=== PATIENT | female | born 1955 | race Caucasian/White ===

== ENCOUNTER 2021-11-19 11:45 | Emergency (ER) | payer OTHER, SELFPAY ==
--- NOTE | ~2021-11-19 | CT_ITS ---
EXAMINATION: CT HEAD WITHOUT CONTRAST CLINICAL INFORMATION: Dizziness COMPARISON: None TECHNIQUE: Contiguous axial imaging was performed from the skull base to vertex without intravenous administration of contrast. This CT examination was performed using dose optimization techniques as appropriate, variously including the following: *Automated exposure control *Adjustment of mA and/or kV according to patient size (this includes techniques or standardized protocols for targeted exams where dose is matched to indication/reason for exam; i.e. extremities or head) *Use of iterative reconstruction technique DLP: 675 mGy-cm FINDINGS: There is no evidence of acute intracranial hemorrhage or territorial infarction. No abnormal mass effect or midline shift is seen. [place] to white matter differentiation is well preserved. No extra-axial fluid collections are identified. The ventricles are normal in size. There is no abnormal attenuation within the brain parenchyma. The osseous structures and soft tissues are normal. The mastoid air cells and visualized portions of the paranasal sinuses are well aerated. CT/CT head/brain wo con IMPRESSION: Unremarkable exam.
[2021-11-19 12:00] VITALS: BP 196/73; PULSE 92; RESP 18; TEMP 35.3; O2SAT 99; BMI 31.1
--- NOTE | 2021-11-19 12:51 | ED_ITS ---
HPI - General Adult General Chief complaint: Dizziness Stated complaint: dizzy heartburn Time Seen by Provider: 11/19/21 12:34 Source: patient Mode of arrival: ambulatory Limitations: no limitations History of Present Illness HPI narrative: 56-year-old female with past medical history of diabetes, hypertension, and GERD, presents for two episodes of dizziness and heartburn. At 5:00 a.m. today, patient felt dizzy. By dizzy she means she felt lightheaded. When she took her blood sugar at home at that time, it was 131. After she took a sugar pill and ate breakfast she felt better, the lightheadedness resolved. Again, at 7 am, she was lightheaded. The lightheadedness lasted for 3 hours, until 10 am.. She felt anxious. At 8:30 a.m. she had heartburn for 45 minutes. States she had epigastric pain that radiated up into her chest. She does see a activities attendant once a year at [facility] in [place]. She does have yearly stress tests, last 1 over year ago. No stents, no history of myocardial infarction. Currently does not feel dizzy at this time. No chest pain, no shortness of breath, no gait disturbance, no headache, no blurry vision, no neck pain, no vomiting. Prior to this she has not been sick. Related Data Allergies Allergy/AdvReac Type Severity Reaction Status Date / Time ibuprofen [IBUPROFEN] Allergy Severe ANAPHYLAXIS, Unverified 07/23/20 17:36 itch Review of Systems Constitutional: Constitutional: Denies body ache(s), Denies chills, Denies fatigue, Denies fever(s), Denies headache(s), Denies malaise and Denies weakness Eyes: Eyes: Denies blurry vision and Denies diplopia ENT: Reports Normal hearing present, Denies vertigo, Reports dizziness, Denies otalgia, Denies headache(s), Denies mouth pain, Denies neck pain, Denies disequilibrium, Denies post nasal drip, Denies sinus pain, Denies sinus pressure, Denies sore throat and Denies throat swelling Cardiovascular: Cardiovascular: Denies chest pain, Denies syncope, Denies leg edema, Denies lightheadedness, Denies Loss of Consciousness, Denies palpitations and Denies dyspnea Respiratory: Respiratory: Denies chest congestion, Denies cough and Denies dyspnea Gastrointestinal: Gastrointestinal: Denies abdominal pain, Denies hematochezia, Denies constipation, Denies diarrhea and Denies vomiting Genitourinary: Genitourinary: Reports no additional female genitourinary complaints Musculoskeletal: Musculoskeletal: Reports no additional musculoskeletal complaints and Denies neck pain Integumentary/Breasts: Skin/Breast: Denies rash Neurologic: Reports Normal hearing present, Denies Abnormal speech present, Denies confusion, Denies vertigo, Reports dizziness, Denies syncope, Denies headache(s), Denies Sensory deficit (Neuro), Denies disequilibrium and Denies weakness Psychiatric: Psychiatric: Denies anxiety, Denies confusion and Denies depression Endocrine: Endocrine: Denies fatigue and Denies palpitations Allergic/Immunologic: Allergic/Immunologic: Denies throat swelling PMFSH Past Medical History Medical History Diabetes High cholesterol HTN (hypertension) Surgical History H/O section Social History Social History Advance Directives: Yes Advance Directives Information Provided: Yes Advance Directives on File: No Physical Exam Vital Signs: Vital Signs: Last Vital Signs Temp 98.3 F 11/19/21 16:11 Pulse 74 11/19/21 16:11 Resp 16 11/19/21 16:11 BP 142/72 H 11/19/21 16:11 Pulse Ox 98 11/19/21 16:11 BMI result Body Mass Index 31.1 Const: General: comfortable, no acute distress and alert; No confusion Nutritional Appearance: well nourished Orientation/consciousness: patient oriented x3 and No confusion Limitations: no limitations HENMT: Head: Yes normal to inspection, Yes normocephalic and Yes atraumatic Ears: hearing grossly normal bilaterally, external ears normal, TM's normal bilaterally and EAC's normal General nose exam: Normal external nose present Face and sinus: Yes normal facial exam and Yes sinuses nontender Mouth: Normal oral and palatal mucosa present Throat: Yes posterior oropharynx normal Eyes: Conjunctivae: conjunctivae normal Pupils: Equal, round and reactive pupils present EOM: EOMs intact bilaterally and No Nystagmus present Neck: Neck: Yes full ROM, Yes no lymphadenopathy and Yes supple Resp: Effort & Inspection: normal respiratory effort and able to speak in complete sentences Auscultation: clear to auscultation bilaterally, no crackles, no rales, no rhonchi and no wheezes Cardio: Rate: regular rate Rhythm: regular rhythm Heart sounds: S1 normal heart sound present and S2 normal heart sound present GI: Inspection: Yes normal to inspection Palpation (GI): Soft to palpation, nontender, no guarding and not rigid Percussion: Yes normal to percussion Auscultation: normal bowel sounds Skin: General skin exam: no rashes or lesions noted Neuro: General: patient oriented x3, gait normal, CN's II-XI intact bilaterally and No confusion Cranial nerves: Yes CN's II-XII intact bilaterally, Yes Facial sensation intact/muscles of mastication intact, Yes Equal, round and reactive pupils present, Yes Normal accommodation reflex present, Yes Bilaterally intact EOM present, Yes Nystagmus not present, Yes Normal facial strength present, Yes Midline tongue present, Yes Normal hearing present, Yes Ability to bilaterally rotate head present, Yes Ability to bilaterally elevate shoulders present, Yes Individual cranial nerve findings present and No Nystagmus present Cognition (Neuro): normal cognition Speech: No Abnormal speech present Gait exam (Neuro): Normal gait present Motor exam (neuro): 5/5 motor strength present throughout and Pronator motor function not present Sensory Exam: No Sensory deficit (Neuro) Deep tendon reflexes (DTR's): Right brachioradialis reflex intensity grade: 1+, Left brachioradialis reflex intensity grade: 1+, Right patellar reflex intensity grade: 1+ and Left patellar reflex intensity grade: 1+ Coordination: [id number] test normal and [id number] test normal Romberg Test: Negative Pupils: Normal pupillary reactivity/response: bilateral Extrem: General: Yes normal to inspection and Yes full ROM Psych: Appearance: grossly normal Affect: normal affect Attitude: cooper apprentice perative Thought process: Normal thought process present Course Course Course Narrative: 66-year-old female with past medical history of diabetes, hypertension, and GERD presents with an episode of dizziness that is resolved prior to arrival, and an episode of heartburn at the same time. On exam, patient is neurologically intact, benign neurological exam. EKG shows no ischemic changes. Will get labs, troponin, urine, head CT. Orthostatics vital signs. Reevaluation(s) Reevaluation #1: Normal head CT, normal EKG. Chemistry is normal, CBC only shows mild anemia. Initial troponin negative. Will repeat troponin 3 hour lalo which will be 5:30 p.m. Reevaluation #2: Orthostatics are negative, urine is negative. Patient is feeling well since she has been here, no more dizziness or epigastric pain since she has been here in the emergency room Pt has been asymptomatic the entire time she has been in the ED Second troponin is also negative. Advised patient to follow-up with her primary care physician as well as her activities attendant. Advised her to return if she had any new dizziness, chest pain, shortness of breath, or any other new or concerning symptoms. Patient verbalized agreement understanding of plan, all of her questions were answered Medical Decision Making Lab Data Result diagrams: 11/19/21 14:31 11/19/21 14:31 Labs: Lab Results 11/19/21 11/19/21 11/19/21 Range/Units 14:31 14:31 14:31 WBC 10.1 (4.8-10.8) X10*3/uL RBC 4.11 L (4.20-5.50) X10*6/uL Hgb 11.8 L (12.0-16.0) g/dl Hct 36.6 L (37.0-47.0) % MCV 89.1 (80.0-98.0) fL MCH 28.7 (27.0-33.0) pg MCHC 32.2 (31.0-35.0) g/dl RDW 14.0 (11.0-16.0) % Plt Count 396 (160-400) X10*3/uL MPV 8.9 L (9.4-12.3) fL Immature Gran % (Auto) 0.8 H (0.0-0.4) % Neut % (Auto) 72.5 (45-73) % Lymph % (Auto) 14.2 L (20-40) % [place] % (Auto) 9.9 (2-11) % Eos % (Auto) 2.4 (0-4) % Baso % (Auto) 0.2 (0-2) % Lymph # (Auto) 1.4 (1.2-4.9) X10*3/uL [place] # (Auto) 1.0 (0.1-1.2) X10*3/uL Eos # (Auto) 0.2 (0.0-0.4) X10*3/uL Baso # (Auto) 0.0 (0.0-0.2) X10*3/uL Abs Immat Gran (auto) 0.08 H (0.00-0.03) X10*3/uL Absolute Neuts (auto) 7.3 (2.0-8.3) x10*3/uL Absolute Nucleated RBC 0.000 (0.0-0.012) X10*3/uL Nucleated RBC % (auto) 0.0 (0.0-0.2) /100WBC Sodium 141 (135-145) mmol/L Potassium 4.2 (3.3-5.1) mmol/L Chloride 105 (96-108) mmol/L Carbon Dioxide 28 (22-29) mmol/L Anion Gap 12 (12-20) BUN 14 (9-16) mg/dL Creatinine 0.68 (0.5-1.4) mg/dL Estim Creat Clear Calc 85.1 Estimated GFR > 60 Random Glucose 95 (60-115) mg/dL Calcium 9.9 (8.4-10.2) mg/dL Magnesium 2.0 (1.6-2.6) mg/dL Total Bilirubin 0.3 (0.0-1.0) mg/dL AST 14 (5-31) U/L ALT 13 (0-31) U/L Alkaline Phosphatase 45 (39-117) U/L Troponin I High Sens < 3.5 (<3.5-17.0) ng/L Total Protein 7.4 (6.5-8.0) g/dL Albumin 3.9 (3.5-5.0) g/dL Urine Color Urine Appearance Urine pH (5.0-8.0) Ur Specific [place] (1.005-1.025) Urine Protein (NEG-TRACE) MG/DL Urine Glucose (UA) (NEG) MG/DL Urine Ketones (NEG) MG/DL Urine Blood (NEG) Urine Nitrite (NEG) Ur Leukocyte Esterase (NEG) COVID-19 (SALLY) (Negative) COVID-19 Clin Com 01/14/22 01/14/22 01/14/22 Range/Units 14:31 16:12 17:43 WBC (4.8-10.8) X10*3/uL RBC (4.20-5.50) X10*6/uL Hgb (12.0-16.0) g/dl Hct (37.0-47.0) % MCV (80.0-98.0) fL MCH (27.0-33.0) pg MCHC (31.0-35.0) g/dl RDW (11.0-16.0) % Plt Count (160-400) X10*3/uL MPV (9.4-12.3) fL Immature Gran % (Auto) (0.0-0.4) % Neut % (Auto) (45-73) % Lymph % (Auto) (20-40) % [place] % (Auto) (2-11) % Eos % (Auto) (0-4) % Baso % (Auto) (0-2) % Lymph # (Auto) (1.2-4.9) X10*3/uL [place] # (Auto) (0.1-1.2) X10*3/uL Eos # (Auto) (0.0-0.4) X10*3/uL Baso # (Auto) (0.0-0.2) X10*3/uL Abs Immat Gran (auto) (0.00-0.03) X10*3/uL Absolute Neuts (auto) (2.0-8.3) x10*3/uL Absolute Nucleated RBC (0.0-0.012) X10*3/uL Nucleated RBC % (auto) (0.0-0.2) /100WBC Sodium (135-145) mmol/L Potassium (3.3-5.1) mmol/L Chloride (96-108) mmol/L Carbon Dioxide (22-29) mmol/L Anion Gap (12-20) BUN (9-16) mg/dL Creatinine (0.5-1.4) mg/dL Estim Creat Clear Calc Estimated GFR Random Glucose (60-115) mg/dL Calcium (8.4-10.2) mg/dL Magnesium (1.6-2.6) mg/dL Total Bilirubin (0.0-1.0) mg/dL AST (5-31) U/L ALT (0-31) U/L Alkaline Phosphatase (39-117) U/L Troponin I High Sens < 3.5 (<3.5-17.0) ng/L Total Protein (6.5-8.0) g/dL Albumin (3.5-5.0) g/dL Urine Color STRAW Urine Appearance CLEAR Urine pH 7.0 (5.0-8.0) Ur Specific [place] 1.010 (1.005-1.025) Urine Protein NEG (NEG-TRACE) MG/DL Urine Glucose (UA) NEG (NEG) MG/DL Urine Ketones NEG (NEG) MG/DL Urine Blood NEG (NEG) Urine Nitrite NEG (NEG) Ur Leukocyte Esterase NEG (NEG) COVID-19 (SALLY) Negative (Negative) COVID-19 Clin Com See Note ECG Data Interpretation: Sinus at 75, MS 144, QRS 96, QTC 439. Normal axis, no ST depressions or elevations, no T-wave changes Discharge Plan Discharge Clinical Impression: Dizziness, Heartburn Patient Disposition: Home, Self-Care Instructions: Lightheadedness (ED) Additional Instructions: Please call both her primary care provider in your activities attendant for follow-up appointments. Please return to emergency room if you have new symptoms of dizziness or lightheadedness, chest pain, shortness of breath, or any other new or concerning symptoms.
--- NOTE | 2021-11-19 12:52 | ECG_ITS ---
Test Reason : dissiness Blood Pressure : / mmHG Vent. Rate : 075 BPM Atrial Rate : 075 BPM P-R Int : 144 ms QRS Dur : 098 ms QT Int : 394 ms P-R-T Axes : 026 -18 025 degrees QTc Int : 439 ms Normal sinus rhythm Normal ECG No significant changes when compared with the previous EKG of 10 dec 2017 Referred By: Radha Marks Electronically Signed By:ANTHONY SWARTZ
[2021-11-19 14:42] LABS: MANUAL DIFF FLAG NO
[2021-11-19 14:45] LABS: Basophils Percent Auto 0.2 % (0-2); Eosinophils Absolute Auto 0.2 X10*3/uL (0.0-0.4); Eosinophils Percent Auto 2.4 % (0-4); Hematocrit 36.6 % (37.0-47.0); Hemoglobin 11.8 g/dl (12.0-16.0); Imm Gran Abs Auto 0.08 X10*3/uL (0.00-0.03); Imm Gran Pct Auto 0.8 % (0.0-0.4); Lymphocytes Absolute Auto 1.4 X10*3/uL (1.2-4.9); Lymphocytes Percent Auto 14.2 % (20-40); Mean Corpuscular HGB Conc 32.2 g/dl (31.0-35.0); Mean Corpuscular Hemoglobin 28.7 pg (27.0-33.0); Mean Corpuscular Volume 89.1 fL (80.0-98.0); Mean Platelet Volume 8.9 fL (9.4-12.3); Monocytes Percent Auto 9.9 % (2-11); Neutrophils Absolute Auto 7.3 x10*3/uL (2.0-8.3); Neutrophils Percent Auto 72.5 % (45-73); Platelet Count 396 X10*3/uL (160-400); Red Blood Count 4.11 X10*6/uL (4.20-5.50); White Blood Count 10.1 X10*3/uL (4.8-10.8)
[2021-11-19 15:03] LABS: Alanine Aminotransferase 13 U/L (0-31); Albumin Level 3.9 g/dL (3.5-5.0); Alkaline Phosphatase 45 U/L (39-117); Anion Gap 12 (12-20); Aspartate Amino Transferase 14 U/L (5-31); Bilirubin Total 0.3 mg/dL (0.0-1.0); Blood Urea Nitrogen 14 mg/dL (9-16); Calcium 9.9 mg/dL (8.4-10.2); Carbon Dioxide 28 mmol/L (22-29); Chloride 105 mmol/L (96-108); Creatinine Clr Calc Pharmacy 85.1; Estimated Glomerular Filt Rate > 60; Glucose Random 95 mg/dL (60-115); Potassium 4.2 mmol/L (3.3-5.1); Sodium 141 mmol/L (135-145); Total Protein 7.4 g/dL (6.5-8.0)
[2021-11-19 15:05] LABS: Troponin-I High Sensitivity < 3.5 ng/L (<3.5-17.0)
[2021-11-19 15:14] LABS: COVID-19 Test Negative (Negative); IDNOW Serial# 55D5AD1C
[2021-11-19] MEDS: 0.9 % Sodium Chloride 1,000 ML 999 ML IV (15:17)
[2021-11-19 16:03] VITALS: BP 150/70; PULSE 77
[2021-11-19 16:07] VITALS: BP 155/79; PULSE 78
[2021-11-19 16:11] VITALS: BP 142/72; BP 142/79; PULSE 74; PULSE 80; RESP 16; TEMP 36.8; O2SAT 98
[2021-11-19 16:22] LABS: Appearance Urine CLEAR; Color Urine STRAW; Glucose Urine UA NEG (NEG); Leukocyte Esterase Urine NEG (NEG); Nitrite Urine NEG (NEG); Urine Blood NEG (NEG); Urine Ketones NEG (NEG); Urine Protein NEG (NEG-TRACE)
[2021-11-19 18:19] LABS: Troponin-I High Sensitivity < 3.5 ng/L (<3.5-17.0)
[2021-11-19 20:31] LABS: RBC Urine 0 /HPF (0); WBC Urine 0 /HPF (0-4)
== END 2021-11-19 18:43 | disposition home or self-care (01) ==
PROVIDERS: Physician Assistant; Emergency Provider Emergency Medicine; PCP Internal Medicine
DX: R42 Dizziness and giddiness (principal); R12 Heartburn; E11.9 Type 2 diabetes mellitus without complications; I10 Essential (primary) hypertension; Z20.822 Contact with and (suspected) exposure to COVID-19; Z79.899 Other long term (current) drug therapy
CPT/HCPCS: 36415; 70450; 80053; 81001; 83735; 84484; 85025; 87635; 93005; 96360; 99284

== ENCOUNTER 2023-02-06 10:42 | Outpatient (REF) | payer OTHER, SELFPAY ==
[2023-02-06 11:14] LABS: IDNOW Serial# 08D9AD1C
[2023-02-06 11:16] LABS: COVID-19 Test Positive (Negative)
== END 2023-02-06 10:43 | disposition home or self-care (01) ==
LOC: HO.LAB 10:42
PROVIDERS: Visit Provider Internal Medicine
DX: Z20.822 Contact with and (suspected) exposure to COVID-19 (principal)
CPT/HCPCS: 87635; C9803